=== PATIENT | female | born 1965 | race Caucasian/White ===

== ENCOUNTER 2016-08-05 09:51 | Emergency (ER) | payer BC ==
[~2016-08-05] VITALS: Ht 154.9 cm; Wt 93.0 kg
[2016-08-05 11:09] VITALS: BP 119/62
== END 2016-08-05 11:10 | disposition home or self-care (01) ==
LOC: EME 09:51
DX: R04.0 Epistaxis (principal); Z87.891 Personal history of nicotine dependence
CPT/HCPCS: 99281; 99283